=== PATIENT | male | born 1970 | race Two or more races ===

== ENCOUNTER → 2018-05-16 | Outpatient (CLI) | payer BC ==
--- NOTE | 2018-05-17 08:15 | KCIC ---
MRI Cervical Spine Without Contrast History: Left-sided cervical radiculopathy, and degenerative changes on previous MRI, stenosis Technique: Multiplanar, multi sequential noncontrast MR imaging was performed of the cervical spine. Comparison: July 29, 2014 Findings: There is some motion degradation. Cervical vertebral body stature and AP alignment are within normal limits. There is evidence of straightening of the cervical spine. There is mild degenerative disc disease at C5-C6 somewhat greater in interval. Cervical cord caliber is within normal limits without significant focal signal abnormality. There is no significant marrow edema. There is no new abnormality of the cervical medullary junction. C2-C3: Neural foramina and spinal canal are adequate. C3-C4: Spinal canal and neural foramina are adequate. C4-C5: Neural foramina and spinal canal are adequate. C5-C6: There is again disc osteophyte complex and bulge. There is mild indentation upon the ventral thecal sac, central canal minimally narrowed 9 to 10 mm. There is uncovertebral degenerative change greater on the right, also bilateral facet degenerative change. There is fairly severe right and overall moderate left neural foramina compromise. C6-C7: There is again minimal disc osteophyte complex and bulge more eccentric to the left lateral recess. Central canal is borderline about 10 mm also with mild left lateral recess stenosis. Bulge apparently extends to the anterior aspect of the left neural foramen, in combination with uncovertebral degenerative change, results in overall fairly severe narrowing of the left neural foramen. C7-T1: Spinal canal and neural foramina are adequate. Impression: 1. There is mild spinal stenosis C5-C6, also mild left lateral recess stenosis C6-7. There is mild degenerative disc disease C5-C6, minimal spondylosis C5-6 and C6-7. There is fairly severe narrowing of the left C6-7 neural foramen, also severe right and moderate left C5-C6 neural foramina compromise as described. Electronically signed by: Morgan Murphy MD (05/17/2018 8:11 AM) [email or web address]
== END | disposition home or self-care (01) ==
LOC: KCIC MRI 17:29
PROVIDERS: ATTEND Family Medicine
DX: M50.322 Other cervical disc degeneration at C5-C6 level (principal); M48.02 Spinal stenosis, cervical region; M47.892 Other spondylosis, cervical region; M25.78 Osteophyte, vertebrae
CPT/HCPCS: 72141

== ENCOUNTER → 2021-06-14 | Outpatient (CLI) | payer BC, OTHER ==
--- NOTE | 2021-06-14 09:47 | KCIC ---
CT for coronary artery calcium scoring, without IV contrast, 06/14/2021 9:43 AM INDICATION: Reason: Cardiovascular screening / Spl. Instructions: / History: Technique: Noncontrast CT images through the coronary arteries was performed . Findings: No significant noncardiac findings are identified. Visual inspection of the coronary arteries: There is a punctate focus of calcification seen along the left anterior descending coronary artery .The remaining coronary arteries are without discernible ca lcified plaque. The computer-generated calcium scoring utilizing AJ-130 criteria are as follows: Left Main Artery: 0 . Left Anterior Descending Artery: 1. Left Circumflex Artery: 0. Right Coronary Artery: 0. The total calcium score is 1. Impression: Your total calcium score is 1. A small amount of plaque is present. The chance of significant heart disease is less than 10%, and corresponds to a low risk for a myocardial infarction. Table: 0: No plaque is present. The chance of significant heart disease is less than 5%, and corresponds to a very low risk for a myocardial infarction. 1-10: A small amount of plaque is present. The chance of significant heart disease is less than 10%, and corresponds to a low risk for a myocardial infarction. 11-100: Plaque is present. This correlates with mild heart disease and a moderate risk for a myocardi al infarction. 101-400: A moderate amount of plaque is present. This correlates with heart disease, and a moderate t o high risk for a myocardial infarction. Over 400: A large amount of plaque is present. This correlates with a greater than 90% chance of a h igh grade stenosis. The risk for myocardial infarction is high. Electronically signed by: Victor Manuel Garcia MD (06/14/2021 9:45 AM) [id number]
== END ==
LOC: KCIC 09:15
PROVIDERS: ATTEND Family Medicine
DX: Z13.6 Encounter for screening for cardiovascular disorders (principal)
CPT/HCPCS: 75571

== ENCOUNTER → 2021-06-14 | Outpatient (CLI) | payer BC ==
--- NOTE | 2021-06-14 09:52 | KCIC ---
MR CERVICAL SPINE WO History:Reason: LEFT ARM WEAKNESS/CERVICALGIA / Spl. Instructions: Sx ongoing for almost 12 yrs. / Hi story: Chronic neck pain with known stenosis and DDD. LUE pain and numbness. Technique: Multiplanar, multi sequential noncontrast MR imaging was performed of the cervical spine. Comparison: None Findings: Normal vertebral body height and alignment. No fracture. Mild degenerative endplate edema C6-C7. No pathologic signal abnormality within the cervical spinal cord. C2-C3: Minimal disc bulge. No canal narrowing. Uncovertebral and facet arthropathy. Mild bilateral n euroforaminal narrowing. C3-C4: Small disc bulge. No canal narrowing. Uncovertebral and facet arthropathy. Moderate right and mild left neuroforaminal narrowing. C4-C5: Small disc bulge. No canal narrowing. Uncovertebral and facet arthropathy. Mild bilateral radha roforaminal narrowing. C5-C6: Posterior discussed by complex. Mild canal narrowing. Cord flattening. Uncovertebral and face t arthropathy. Severe right and moderate left neuroforaminal narrowing. C6-C7: Posterior disc osteophyte complex. Minimal canal narrowing. Uncovertebral and facet arthropa thy. Severe bilateral neuroforaminal narrowing, left greater than right. C7-T1: No canal narrowing. No neuroforaminal narrowing. Impression: 1. Multilevel cervical spondylosis most prominent C5-C6. 2. C5-C6 mild canal narrowing. 3. Neuroforaminal narrowing most prominent right C5-C6 and bilateral C6-C7. Electronically signed by: Roderick Cote DO (06/14/2021 9:50 AM) [id number]
--- NOTE | 2021-06-14 10:48 | KCIC ---
Examination: MRI of the right shoulder without contrast HISTORY: History of right shoulder pain COMPARISON: None available Technique: Multiplanar, multisequence MR imaging of the right shoulder performed without contrast. FINDINGS: The long head of the biceps tendon within the bicipital groove. The attachment of the long head the biceps tendon to the superior labral anchor grossly appears intact. The attachment of the subscapular is tendon grossly appears intact. There is a small focus of increased T2 signal identified in the und ersurface fibers of the supraspinatus tendon anteriorly could be high-grade partial tear. Mild increa sed signal identified in the supraspinatus, infraspinatus tendon likely tendinosis. The visualized labrum grossly appears intact. The acromion is type II. The muscle bulk grossly appears unremarkable. There is mild obscuration of f at in the rotator interval. IMPRESSION: 1. A small focus of increased T2 signal identified in the undersurface fibers of the supraspinatus te ndon anteriorly could be high-grade partial tear. 2. Mild rotator cuff tendinosis. 3. Mild obscuration of fat in the rotator interval. Correlate for adhesive capsulitis. Electronically signed by: Mendez Bello MD (06/14/2021 10:45 AM) [id number]
== END ==
LOC: KCIC MRI 07:57
PROVIDERS: ATTEND Nurse Practitioner
DX: M48.02 Spinal stenosis, cervical region (principal); M47.812 Spondylosis without myelopathy or radiculopathy, cervical region; M75.21 Bicipital tendinitis, right shoulder; M62.89 Other specified disorders of muscle; M50.21 Other cervical disc displacement, high cervical region; M48.8X2 Other specified spondylopathies, cervical region
CPT/HCPCS: 72141; 73221